=== PATIENT | male | born 1955 | race Caucasian/White ===

== ENCOUNTER → 2017-04-01 | Outpatient (CLI) | payer OTHER, BC ==
--- NOTE | 2017-04-01 14:01 | MR ---
EXAMINATION TYPE: MR lumbar spine wo con DATE OF EXAM: 04/01/2017 COMPARISON: Prior lumbar MRI 05/16/2013 HISTORY: lumbar spondylolisthesis, lumbago TECHNIQUE: Multiplanar, multisequence images of the lumbar spine were acquired. L1-L2: Normal disc appearance without desiccation. No herniation, protrusion or disc bulging. No ca nal stenosis is present. Foramina are patent bilaterally. L2-L3: Posterior broad-based disc bulge causes mild anterior mass effect on the thecal sac. No signif icant foraminal encroachment or central canal stenosis. L3-L4: Spinal stenosis is most significant with hypertrophic change of the ligamentum flavum, broad-b ased posterior disc bulge causing a trefoil appearance of the thecal sac. Possible synovial cyst late rally and encroaches upon the left L3 nerve root. L4-L5: Broad-based posterior disc bulge causes anterior mass effect on the thecal sac. Hypertrophic c hange of the ligamentum flavum encroaches on the lateral recesses, there is a trefoil appearance of t he thecal sac. No significant central stenosis. Circumferential extension of broad-based disc bulge c auses mild bilateral foraminal encroachment. L5-S1: Normal disc appearance without desiccation. No herniation, protrusion or disc bulging. No ca nal stenosis is present. Foramina are patent bilaterally. Lumbar segments are intact. No paraspinal masses are identified. Conus medullaris has a normal appe arance. Mild spinal curvature could be positional is similar to prior exam. IMPRESSION: Spinal stenosis is moderate to severe L3-4 and May progress slightly in the interval. Possible synovi al cyst, correlate for left L3 radiculopathy. Degenerative disc disease similar to prior exam.
== END | disposition home or self-care (01) ==
LOC: RADMRIMAIN 09:57
PROVIDERS: ATTEND Family Medicine
DX: M48.06 Spinal stenosis, lumbar region (principal); M51.36 Other intervertebral disc degeneration, lumbar region; M43.16 Spondylolisthesis, lumbar region
CPT/HCPCS: 72148

== ENCOUNTER 2018-01-08 08:04 | Day surgery (SDC) | payer OTHER, BC ==
[2018-01-06 09:21] VITALS: BMI 31.0
--- NOTE | 2018-01-08 07:43 | P.GSHP ---
History of Present Illness H&P Date: 01/08/18 Chief Complaint: Umbilical hernia Patient seen last in May of last year. Has complaints of a painful bulge at the umbilicus. During larger in size. Recently contacted to schedule surgical repair. Past Medical History Past Medical History: Hyperlipidemia, Hypertension Additional Past Medical History / Comment(s): BACK PAIN History of Any Multi-Drug Resistant Organisms: None Reported Past Surgical History: No Surgical Hx Reported Past Anesthesia/Blood Transfusion Reactions: No Reported Reaction Past Psychological History: Anxiety Smoking Status: Former smoker Past Alcohol Use History: Rare Past Drug Use History: None Reported - Past Family History Mother Family Medical History: No Reported History Medications and Allergies Home Medications Medication Instructions Recorded Confirmed Type Aspirin 81 mg PO DAILY 05/11/14 01/06/18 History Diazepam 10 mg PO DIRECTED PRN 05/11/14 01/06/18 History Rosuvastatin Calcium [Crestor] 20 mg PO DAILY 05/11/14 01/06/18 History Nebivolol HCl [Bystolic] 2.5 mg PO HS 01/06/18 01/06/18 History amLODIPine [Norvasc] 10 mg PO DAILY 01/06/18 01/06/18 History Allergies Allergy/AdvReac Type Severity Reaction Status Date / Time No Known Allergies Allergy Verified 01/06/18 09:13 Surgical - Exam Physical exam: General: Well-developed, well-nourished HEENT: Normocephalic, sclerae nonicteric Abdomen: Nontender, nondistended, small moderate reducible umbilical hernia Extremities: No edema Neuro: Alert and oriented Assessment and Plan (1) Umbilical hernia Narrative/Plan: Will proceed with umbilical hernia repair. Risks of bleeding, infection, recurrence, bowel injury, mesh placement, mesh related complications were discussed. He understands and wishes to proceed. Status: Acute Code(s): K42.9 - UMBILICAL HERNIA WITHOUT OBSTRUCTION OR GANGRENE SNOMED Code(s): 940544725
[~2018-01-08 08:04] MED LIST: DEXAMETHASONE SOD PHOSPHATE 10 MG/ML 1 ML VIAL IV ONE; HEPARIN SODIUM,PORCINE 5,000 UNIT/ML 1 ML VIAL SQ ONE; LIDOCAINE 1% 20 ML VIAL (10MG/ML) FOR IV START INTRADERMA PRN; MORPHINE SULFATE 2 MG/ML SYRINGE IV PRN; ONDANSETRON ODT 4 MG TAB PO ONE; SCOPOLAMINE 1.5MG/72HR PATCH TRANSDERM ONE; ceFAZolin IN SWFI 2 GM/20 ML SYRINGE IVP ONE
[2018-01-08] MEDS: LACTATED RINGERS 1,000 ML IV SCH ×2 (08:37→12:00)
[2018-01-08] MEDS ORDERED: BUPIVACAINE (PF) 0.25% 30 ML VIAL SQ ONE ×3 (09:27→10:38)
[2018-01-08] MEDS ORDERED: SUCCINYLCHOLINE CHLORIDE 100 MG/5 ML SYR IV ONE (10:14)
[2018-01-08] MEDS ORDERED: PROPOFOL 10 MG/ML 20 ML VIAL IV ONE (10:14)
[2018-01-08] MEDS ORDERED: ROCURONIUM BROMIDE 10 MG/ML 10 ML VIAL IV ONE (10:14)
[2018-01-08] MEDS ORDERED: GLYCOPYRROLATE 0.2 MG/ML 2 ML VIAL ONE (10:14)
[2018-01-08] MEDS ORDERED: PHENYLEPHRINE-0.9% NACL SYG 1 MG/10 ML SYRINGE ONE (10:14)
[2018-01-08] MEDS ORDERED: MIDAZOLAM 2 MG/2 ML VIAL ONE (10:14)
[2018-01-08] MEDS ORDERED: fentaNYL (PF) 50 MCG/ML 2 ML AMP ONE (10:14)
[2018-01-08] MEDS ORDERED: LIDOCAINE 1% INJ 10MG/ML (20 ML MDV) ONE (10:14)
[2018-01-08] MEDS ORDERED: NEOSTIGMINE 1 MG/ML 10 ML VIAL ONE (10:14)
[2018-01-08] MEDS ORDERED: LACTATED RINGERS 1,000 ML IV ONE (10:38)
[2018-01-08] MEDS ORDERED: HYDROcodone/APAP 5-325MG 1 EACH TAB PO PRN (10:54)
[2018-01-08] MEDS ORDERED: NALOXONE 0.4 MG/ML 1 ML VIAL IV PRN (10:54)
--- NOTE | 2018-01-08 10:56 | P.OP ---
Date of Procedure: 01/08/18 Procedure(s) Performed: PREOPERATIVE DIAGNOSIS: Umbilical hernia POSTOPERATIVE DIAGNOSIS: Same PROCEDURE: Umbilical herniorrhaphy SURGEON: Santi EBL: Minimal ANESTHESIA: General COMPLICATIONS: None OPERATIVE PROCEDURE: The patient was placed in the operating table in the supine position. A periumbilical incision was made using the scalpel. The subcutaneous tissues were dissected bluntly. The hernia sac was identified. The umbilical attachments to the fascia were divided using electrocautery. The hernia sac was excised. The hernia sac was sent to pathology. The defect was quite small measuring only approximately 7 mm in size. The defect was closed using interrupted [id number] 0 Ethibond sutures. The subcutaneous tissues were reapproximated using inverted 3-0 Vicryl sutures. The umbilicus was tacked back down to the fascia using a 3-0 Vicryl suture. The skin was closed using 4-0 Monocryl sutures. Steri-Strips and sterile dressings were then applied. DISPOSITION: Stable to recovery room
[2018-01-08 11:08] VITALS: TEMP 98.4
[2018-01-08] MEDS ORDERED: ONDANSETRON 4 MG/2 ML VIAL IVP ONE (11:16)
[2018-01-08] MEDS ORDERED: KETOROLAC 30 MG/ML 1 ML VIAL IVP ONE (11:29)
[2018-01-08 11:31] VITALS: RESP 16
[2018-01-08] MEDS ORDERED: HYDROcodone/APAP 5-325MG 1 EACH TAB PO ONE (11:55)
[2018-01-08 12:48] VITALS: BP 132/89; PULSE 60
== END 2018-01-08 12:57 | disposition home or self-care (01) ==
LOC: OR 08:04
PROVIDERS: ATTEND Surgery
DX: K42.9 Umbilical hernia without obstruction or gangrene (principal); E78.5 Hyperlipidemia, unspecified; I10 Essential (primary) hypertension; M54.9 Dorsalgia, unspecified; F41.9 Anxiety disorder, unspecified; Z79.82 Long term (current) use of aspirin; Z79.899 Other long term (current) drug therapy; Z87.891 Personal history of nicotine dependence
CPT/HCPCS: 88302; 49585; J2250; J1644; J1100; J2710; J2405; J2001; J3010; J1885; J2370; J0330; J2704; J0690

== ENCOUNTER 2019-01-07 09:06 | Day surgery (SDC) | payer OTHER, BC ==
[2019-01-02 14:41] VITALS: BMI 29.6
[~2019-01-07 09:06] MED LIST changes: -DEXAMETHASONE SOD PHOSPHATE 10 MG/ML 1 ML VIAL IV ONE; -HEPARIN SODIUM,PORCINE 5,000 UNIT/ML 1 ML VIAL SQ ONE; +LACTATED RINGERS 1,000 ML IV SCH; -LIDOCAINE 1% 20 ML VIAL (10MG/ML) FOR IV START INTRADERMA PRN; -MORPHINE SULFATE 2 MG/ML SYRINGE IV PRN; -ONDANSETRON ODT 4 MG TAB PO ONE; -SCOPOLAMINE 1.5MG/72HR PATCH TRANSDERM ONE; -ceFAZolin IN SWFI 2 GM/20 ML SYRINGE IVP ONE
[2019-01-07 09:31] VITALS: TEMP 98
[2019-01-07] MEDS ORDERED: LIDOCAINE 1% 20 ML VIAL (10MG/ML) FOR IV START INTRADERMA ONE (09:40)
[2019-01-07] MEDS ORDERED: PROPOFOL 10 MG/ML 20 ML VIAL IV ONE (09:53)
--- NOTE | 2019-01-07 10:01 | P.GSHP ---
History of Present Illness H&P Date: 01/07/19 Chief Complaint: Colon cancer screening Patient here today for colonoscopy. Last colonoscopy 5 years ago. Patient with personal history of colon polyps. No bowel complaints. Past Medical History Past Medical History: Hyperlipidemia, Hypertension, Osteoarthritis (OA) Additional Past Medical History / Comment(s): BACK PAIN History of Any Multi-Drug Resistant Organisms: None Reported Past Surgical History: Hernia Repair, Tonsillectomy Additional Past Surgical History / Comment(s): UMBILICAL HERNIA REPAIR Past Anesthesia/Blood Transfusion Reactions: No Reported Reaction Smoking Status: Former smoker - Past Family History Mother Family Medical History: No Reported History Medications and Allergies Home Medications Medication Instructions Recorded Confirmed Type Aspirin 81 mg PO DAILY 05/11/14 01/07/19 History Diazepam 2.5 mg PO DAILY PRN 05/11/14 01/07/19 History Rosuvastatin Calcium [Crestor] 20 mg PO DAILY 05/11/14 01/07/19 History Nebivolol HCl [Bystolic] 2.5 mg PO HS 01/06/18 01/07/19 History amLODIPine [Norvasc] 10 mg PO DAILY 01/06/18 01/07/19 History Bartolome/D3/Mag11/Zinc/Fractionation Plant Supervisor/Torin/Bor 1 each PO DAILY 01/02/19 01/07/19 History [Caltrate 600+D Plus Tablet] Ergocalciferol (Vitamin D2) 50,000 unit PO MOSA 01/02/19 01/07/19 History [Vitamin D2] Ibuprofen [Advil] 200 mg PO Q8HR PRN 01/02/19 01/07/19 History Sildenafil Citrate [Sildenafil] 20 mg PO Q30D 01/02/19 01/07/19 History Zinc 50 mg PO DAILY 01/02/19 01/07/19 History Allergies Allergy/AdvReac Type Severity Reaction Status Date / Time No Known Allergies Allergy Verified 01/07/19 09:21 Surgical - Exam Vital Signs Temp Pulse Resp BP Pulse Ox 98 F 69 16 130/83 97 01/07/19 09:30 01/07/19 09:30 01/07/19 09:30 01/07/19 09:30 01/07/19 09:30 Physical exam: General: Well-developed, well-nourished HEENT: Normocephalic, sclerae nonicteric Abdomen: Nontender, nondistended Extremities: No edema Neuro: Alert and oriented Assessment and Plan (1) Colon cancer screening Narrative/Plan: Will proceed with colonoscopy at this time. Current Visit: Yes Status: Acute Code(s): Z12.11 - ENCOUNTER FOR SCREENING FOR MALIGNANT NEOPLASM OF COLON SNOMED Code(s): 317466480
--- NOTE | 2019-01-07 10:20 | P.PCN ---
Date of Procedure: 01/07/19 Procedure(s) Performed: PREOPERATIVE DIAGNOSIS: Colon cancer screening, history of polyps POSTOPERATIVE DIAGNOSIS: Rectal polyp 2, diverticulosis PROCEDURE: Colonoscopy with snare polypectomy ANESTHESIA: MAC SURGEON: Angel Hancock M.D. SPECIMENS: Rectal polyps ENDOSCOPIC PROCEDURE: The patient was placed on the endoscopy table in the left decubitus position. The Olympus colonoscope was inserted into the anus and passed under direct visualization to the base of the cecum. The appendiceal orifice was visualized. From that point the scope was slowly withdrawn inspecting all surfaces carefully. There were no neoplastic inflammatory or polypoid lesions throughout the cecum, ascending, transverse, descending, and sigmoid colon. The rectum there were noted to be 2 small polyps removed using the snare with cautery technique. There was mild left-sided diverticulosis noted. Digital rectal examination was normal. The patient was taken to the recovery room in stable condition per anesthesia guidelines. RECOMMENDATIONS: Await biopsies results. Plan follow-up colonoscopy 5 years.
[2019-01-07 10:45] VITALS: BP 114/74; PULSE 54; RESP 18
== END 2019-01-07 11:00 | disposition home or self-care (01) ==
LOC: ORWHC2ENDO 09:06
PROVIDERS: ATTEND Surgery
DX: Z12.11 Encounter for screening for malignant neoplasm of colon (principal); Z86.010 Personal history of colon polyps; D12.8 Benign neoplasm of rectum; E78.5 Hyperlipidemia, unspecified; I10 Essential (primary) hypertension; K57.90 Diverticulosis of intestine, part unspecified, without perforation or abscess without bleeding; M19.90 Unspecified osteoarthritis, unspecified site; Z79.82 Long term (current) use of aspirin; Z87.891 Personal history of nicotine dependence
CPT/HCPCS: 88305; 45385; J2704

== ENCOUNTER → 2019-06-29 | Outpatient (CLI) | payer OTHER, BC ==
--- NOTE | 2019-06-29 06:39 | MR ---
EXAMINATION TYPE: MR lumbar spine wo con DATE OF EXAM: 06/29/2019 COMPARISON: MRI lumbar spine April 01, 2017 HISTORY: Spinal stenosis, lumbar region per order. Low back pain for 1 to 2 years causing pain into b ilateral buttocks and frontal catheter. TECHNIQUE: Multiplanar, multisequence imaging of the lumbar spine is performed without IV contrast. FINDINGS: Sagittal images of the lumbar spine show vertebral body heights and alignment to appear sat isfactory. There is some multilevel disc desiccation mid to lower lumbar spine. Disc space heights ar e maintained. The conus medullaris is normal in position and signal. The bone marrow signal intensit y is within normal limits. Axial images at the T12-L1 and L1-L2 levels remain within normal limits. Axial images at the L2-L3 level shows mild to moderate broad disc bulge effacing anterior thecal sac on axial image 18 with mild left greater than right bilateral anterior inferior neural foraminal narr owing. Slight progression from prior MRI thought present. Axial images at the L3-L4 level shows moderate facet degenerative changes and ligamentum flavum hyper trophy effacing posterolateral thecal sac with moderate broad disc bulge effacing the anterior thecal sac on axial image 13 and causing moderate bilateral anterior inferior neural foraminal narrowing. P rogression findings from 2017 study thought present. Axial images at the L4-L5 level shows moderate facet degenerative changes and ligamentum flavum hyper trophy effacing posterior lateral thecal sac with right-sided 5 mm synovial cyst thoughts stable axia l image 8 effacing right lateral thecal sac. Moderate broad-based posterior disc protrusion effaces a nterior thecal sac. Mild left greater than right bilateral anterior inferior neural foraminal narrowi ng. No significant change from prior. Axial images at the L5-S1 level show [id number] facet degenerative changes bilaterally with tin y central disc protrusion effacing anterior thecal sac. Bilateral neural foramina are patent. No suspicious incidental retroperitoneal findings. IMPRESSION: Multilevel degenerative changes in lumbar spine as detailed above. Some progression in th e mid lumbar findings are thought present from prior MRI. Increasing spinal canal stenosis noted L3-L 4 level axial image 13 for reference. There is felt mislabeling of levels on prior study, synovial cy st is clearly right L4-L5 level axial image 8.
== END | disposition home or self-care (01) ==
LOC: RADMRIMAIN 05:48
PROVIDERS: ATTEND Family Medicine
DX: M48.061 Spinal stenosis, lumbar region without neurogenic claudication (principal); M47.816 Spondylosis without myelopathy or radiculopathy, lumbar region; M71.38 Other bursal cyst, other site
CPT/HCPCS: 72148

== ENCOUNTER → 2019-10-26 | Outpatient (CLI) | payer OTHER, BC ==
--- NOTE | 2019-10-27 02:56 | MR ---
EXAMINATION TYPE: MR cervical spine wo con DATE OF EXAM: 10/26/2019 COMPARISON: None HISTORY: Neck pain into rt arm Multiplanar multiecho imaging of the cervical spine was performed with no contrast. Vertebra have normal alignment. Disc spaces are fairly normal. There are small posterior disc bulging at C4-5 C5-6 C6-7. There is developmentally adequate spinal canal. Spinal canal measures 9 mm at the narrowest point at C5-6. The brainstem is intact. There is small area of linear increased signal wit hin the cervical spinal cord on the T2 images at the C5 level. This is seen only on the sagittal imag es. This could be artifactual. There is no cervical paraspinal mass. IMPRESSION: Mild posterior disc bulging at multiple levels as above without spinal stenosis. Linear increased sig nal seen on the sagittal T2 images in the cervical spinal cord that is not demonstrated by the axial images. This is not a certain finding. Small area of myelomalacia cannot be entirely excluded.
== END | disposition home or self-care (01) ==
LOC: RADMRIMAIN 20:56
PROVIDERS: ATTEND Family Medicine
DX: M50.20 Other cervical disc displacement, unspecified cervical region (principal)
CPT/HCPCS: 72141

== ENCOUNTER → 2022-01-15 | Outpatient (CLI) | payer MEDICARE, BC ==
--- NOTE | 2022-01-17 07:33 | MR ---
EXAMINATION TYPE: MR Prostate wo/w con DATE OF EXAM: 01/15/2022 COMPARISON: None. INDICATION: Prostate nodule, elevated PSA. PSA: 3.03 ng/ml on August 15, 2020 Recent Biopsy and Date: None Pathology Report (If Applicable): n/a TECHNIQUE: Examination was performed using a 3T MRI without an endorectal coil. Multiparametric imaging was perf ormed with T2 mutliplanar sequences, axial diffusion weighted imaging and dynamic contrast enhanced i maging, utilizing 8 mL intravenous Gadavist gadolinium contrast. FINDINGS: There is no clinically significant cancer identified. PROSTATE VOLUME: 4.3 cm SI x 4.1 cm AP x 5.4 cm LR Vol= 49.9 cc predicted PSA equals 5.98 PSA DENSITY: 0.06 ng/ml/cc Left lateral apex has lesion of wedge diminished signal on ADC mapping with slight hyperintense signa l on DWI. Similar finding noted in the periphery of the right mid to basilar segment near axial image 19. PI-RADS 2 lesions. Transitional zone shows marked overall heterogeneity. No suspicious T2 hypointense nodules or areas o f significant increased restricted diffusion. Seminal vesicles are symmetric and within normal limits. Prostate capsule is intact. Urinary bladder shows mild wall thickening along the posterior bladder wall. No significant trabeculation. No adjacen t pelvic fluid or adenopathy. Visualized osseous structures are intact. IMPRESSION: A focus of clinically significant cancer is not identified. Highest Assessment Category: 2 MRI Stage: T0 N0 M0 based on review of pelvic images. False negative rates for MRI range from 5-20% depending on risk profile. Assessment Categories: 1 ? Very low (clinically significant cancer is highly unlikely to be present) 2 ? Low (clinically significant cancer is unlikely to be present) 3 ? Intermediate (the presence of clinically significant cancer is equivocal) 4 ? High (clinically significant cancer is likely to be present) 5 ? Very high (clinically significant cancer is highly likely to be present)
== END | disposition home or self-care (01) ==
LOC: RADMRIMAIN 14:16
PROVIDERS: ATTEND Family Medicine
DX: N40.2 Nodular prostate without lower urinary tract symptoms (principal)
CPT/HCPCS: 72197; A9585

== ENCOUNTER 2024-01-14 12:01 | Day surgery (SDC) | payer BC, MEDICARE ==
[2024-01-14 12:56] VITALS: RESP 16; TEMP 97.6
[2024-01-14] MEDS ORDERED: PROPOFOL 10 MG/ML 20 ML VIAL IV ONE (13:00)
--- NOTE | 2024-01-14 13:03 | P.GSHP ---
History of Present Illness H&P Date: 01/14/24 Chief Complaint: Screening with history of polyps 68-year-old male here for colonoscopy. Last colonoscopy 5 years ago showed colon polyps. He had polyps prior to that as well. No family history of colon cancer. No bowel complaints. Past Medical History Past Medical History: Hyperlipidemia, Hypertension, Osteoarthritis (OA), Prostate Disorder Additional Past Medical History / Comment(s): BACK PAIN @times, past hx. colon polyps History of Any Multi-Drug Resistant Organisms: None Reported Past Surgical History: Appendectomy, Hernia Repair, Tonsillectomy Additional Past Surgical History / Comment(s): UMBILICAL HERNIA REPAIR, colonoscopies Past Anesthesia/Blood Transfusion Reactions: No Reported Reaction Smoking Status: Former smoker, Vaper - Past Family History Mother Family Medical History: No Reported History Medications and Allergies Home Medications Medication Instructions Recorded Confirmed Type Aspirin 81 mg PO DAILY 05/11/14 01/14/24 History Ergocalciferol [Vitamin D2 (1250 1,250 mcg PO WE 05/10/23 01/10/24 History Mcg = [id number] Iu)] Rosuvastatin Calcium [Crestor] 20 mg PO DAILY 05/10/23 01/10/24 History amLODIPine [Norvasc] 5 mg PO DAILY 05/10/23 01/10/24 History tadalafiL 5 mg PO DAILY 05/10/23 01/14/24 History Nebivolol HCl [Bystolic] 2.5 mg PO DAILY 01/10/24 01/10/24 History Allergies Allergy/AdvReac Type Severity Reaction Status Date / Time No Known Allergies Allergy Verified 01/14/24 12:23 Surgical - Exam Vital Signs Temp Pulse Resp BP Pulse Ox 97.6 F 66 16 121/66 97 01/14/24 12:33 01/14/24 12:33 01/14/24 12:33 01/14/24 12:33 01/14/24 12:33 Physical exam: General: Well-developed, well-nourished HEENT: Normocephalic, sclerae nonicteric Abdomen: Nontender, nondistended Extremities: No edema Neuro: Alert and oriented Assessment and Plan (1) Colon cancer screening Narrative/Plan: Will proceed with colonoscopy at this time. Current Visit: No Status: Acute Code(s): Z12.11 - ENCOUNTER FOR SCREENING FOR MALIGNANT NEOPLASM OF COLON SNOMED Code(s): 593222686
--- NOTE | 2024-01-14 13:17 | P.PCN ---
Date of Procedure: 01/14/24 Procedure(s) Performed: PREOPERATIVE DIAGNOSIS: Screening with history of polyps POSTOPERATIVE DIAGNOSIS: Sigmoid colon polyp, rectal polyp, diverticulosis PROCEDURE: Colonoscopy with snare polypectomy ANESTHESIA: MAC SURGEON: Angel Hancock M.D. SPECIMENS: Polyps ENDOSCOPIC PROCEDURE: The patient was placed on the endoscopy table in the left decubitus position. The Olympus colonoscope was inserted into the anus and passed under direct visualization to the base of the cecum. The appendiceal orifice was visualized. From that point the scope was slowly withdrawn inspecting all surfaces carefully. There were no neoplastic inflammatory or polypoid lesions throughout the cecum, ascending, transverse, and descending colon. In the sigmoid colon a small polyp was seen and removed using the snare with cautery technique. In the rectum another small polyp was seen and removed in a similar fashion. Mild left-sided diverticulosis was present. Digital rectal examination was normal. The patient was taken to the recovery room in stable condition per anesthesia guidelines. RECOMMENDATIONS: Await biopsy results. Repeat colonoscopy 5 years.
[2024-01-14] MEDS: LACTATED RINGERS 1,000 ML IV SCH (13:18)
[2024-01-14 13:41] VITALS: BP 107/72; PULSE 58
== END 2024-01-14 14:00 | disposition home or self-care (01) ==
LOC: ORWHC2ENDO 12:01
PROVIDERS: ATTEND Surgery
DX: Z12.11 Encounter for screening for malignant neoplasm of colon (principal); K62.1 Rectal polyp; K63.5 Polyp of colon; K57.30 Diverticulosis of large intestine without perforation or abscess without bleeding; I10 Essential (primary) hypertension; E78.5 Hyperlipidemia, unspecified; M19.90 Unspecified osteoarthritis, unspecified site; Z87.891 Personal history of nicotine dependence; Z90.49 Acquired absence of other specified parts of digestive tract; Z86.010 Personal history of colon polyps; Z79.82 Long term (current) use of aspirin; Z79.899 Other long term (current) drug therapy
CPT/HCPCS: 88305; 45385; J2704